=== PATIENT | male | born 1965 | race African-American/Black ===

== ENCOUNTER 2023-04-26 08:41 | Outpatient (CLI) | payer OTHER, MEDICARE, SELFPAY ==
--- NOTE | 2023-04-26 08:56 | ECG_ITS ---
Measurements Intervals [place] Rate: 85 P: 56 NE: 149 QRS: -31 QRSD: 104 T: 41 QT: 384 QTc: 458 Interpretive Statements SINUS RHYTHM BASELINE ARTIFACT MARKED LEFT AXIS DEVIATION [QRS AXIS < -30] MODERATE VOLTAGE CRITERIA FOR LVH, CONSIDER NORMAL VARIANT BORDERLINE ECG NO PREVIOUS ECG AVAILABLE FOR COMPARISON Electronically Signed On 04-26-2023 18:26:30 ELEVATOR OPERATOR by Dax Kaye M.D.
[2023-04-26 09:38] LABS: Anion Gap 3 mmol/L (8-16); Blood Urea Nitrogen 17 mg/dL (9-20); Calcium 9.7 mg/dL (8.4-10.2); Carbon Dioxide 32 mmol/L (22-30); Chloride 104 mmol/L (98-107); Estimated Glomerular Filt Rate > 60; Glucose 123 mg/dL (65-110); Potassium 3.8 mmol/L (3.4-5.0); Sodium 139 mmol/L (137-145)
[2023-04-26 09:40] LABS: Alanine Aminotransferase 25 U/L (6-50); Albumin Level 4.2 g/dL (3.5-5.1); Alkaline Phosphatase 139 U/L (38-126); Amylase 68 U/L (30-110); Aspartate Amino Transferase 34 U/L (17-59); Bilirubin,Total 0.8 mg/dL (0.2-1.3); Lipase 31 U/L (23-300)
== END 2023-04-26 08:42 | disposition home or self-care (01) ==
LOC: ANHSURGERY 08:46
PROVIDERS: Anesthesiology; PCP Internal Medicine; Visit Provider Surgery
DX: K82.8 Other specified diseases of gallbladder (principal); Z01.818 Encounter for other preprocedural examination; I10 Essential (primary) hypertension
CPT/HCPCS: 36415; 80048; 80076; 82150; 83690; 86850; 86900; 86901; 93005

== ENCOUNTER 2023-04-28 00:24 | Day surgery (SDC) | payer OTHER, MEDICARE, SELFPAY ==
[2023-04-19 12:06] VITALS: BMI 44.2
--- NOTE | 2023-04-19 12:13 | PC.NURSE ---
Report to the Outpatient Waiting Room, entrance under the green pavilion located off [facility], at time 8:00 on date 04/28/23. Planned Procedure Time: 10:00. Time changes happen often and if your time is changed the preop area will call you the afternoon before. - You and your visitor will be asked to self-screen and do not enter if you have any COVID symptoms. - A mask is optional within the hospital at this time. Patients may have clear liquids (water, carbonated beverages, clear teas, apple juice) until 3 hours prior to surgery (7:00) with a maximum of 20 ounces. - No food from midnight until time of surgery Take the following medications with a SIP of water the morning of surgery: INHALER, METHYLNALTREXONE, PAIN PILL IF NEEDED DO NOT STOP ANY OF YOUR OTHER PRESCRIPTION MEDICATIONS PRIOR TO SURGERY ?EXCEPT THE FOLLOWING Medications to discontinue per physician: VITAMINS/SUPPLEMENTS Date to take last dose: 04/24/[address] GONZALEZ Please no make-up, nail guyanese, hairspray, perfume, deodorant, or body powder the day of surgery. No jewelry (including any body piercings) or valuables the day of surgery, leave them at home. Please take a shower or bath the night before, or the morning of, surgery with an antibacterial soap. Wear comfortable, loose fitting clothing. - Jewelry must be removed prior to entering the operating room. Rings and piercings that are not removed may be cut off. - The hospital will not accept responsibility for valuables. - Please leave all valuables, including medications, at home the day of surgery. If you are going home after surgery, a licensed train driver must drive you home. - NO public transportation without another adult if you receive anesthesia. - We recommend that an adult stay with you for 24 hours following discharge. - We also recommend that you do not drive, make important decision, drink alcoholic beverages, or take any drugs that were not prescribed by your health care provider for at least 24 hours after your discharge time. Follow any additional instructions given to you from your surgeon. If you or anyone in your household have experienced Covid symptoms in the past week, please notify your surgeon or the nurse liaison at the phone number below for possible testing. Telephone instructions given to PT - STEFANIA MARSH and asked if any additional questions and then verbalized understanding. Patient advised to call surgeon office or pre surgery nurse liaison [phone] if any additional questions.
[2023-04-28] VITALS (9 sets, daily range): BP systolic 101–154; BP diastolic 55–84; PULSE 60–106; RESP 12–21; TEMP 36.1–36.6; O2SAT 100
[2023-04-28] MEDS: INDOCYANINE GREEN 25 MG VIAL WITH DILUENT 3.75 MG IV PUSH (08:45)
[2023-04-28] MEDS: KETOROLAC 15 MG/ML VIAL (*BKC) IV PUSH (08:45)
[2023-04-28] MEDS: ACETAMINOPHEN 500 MG TABLET 1000 MG PO (08:45)
[2023-04-28] MEDS: LACTATED RINGERS 1,000 ML 30 ML IV CONT ×2 (08:45→11:26)
[2023-04-28] MEDS: SCOPOLAMINE 1 MG PATCH 1 PATCH TRANSDERM (09:00)
--- NOTE | 2023-04-28 09:18 | WPDHPUPDATE1 ---
History and Physical Update Update Date/Time: 04/28/23 09:18 History and Physical has been reviewed, including an updated exam of the patient. There are NO changes in the patient's condition. Risks, benefits, and alternatives have been discussed and questions answered. Patient agrees to proceed with procedure.
--- NOTE | 2023-04-28 09:18 | PM.IMHP ---
H&P: HPI History of Present Illness Date/Time: 04/28/23 09:18 Chief Complaint: Biliary dyskinesia Narrative: This is a 57-year-old man who presents for robotic assisted laparoscopic cholecystectomy. He reports no changes since last seen in the office. Review of Systems Review of Systems: All systems reviewed & are unremarkable except as noted in HPI and below Constitutional: Constitutional: Denies chills, Denies fever(s), Denies headache(s) and Denies weight loss Eyes: Eyes: Denies change in vision ENT: Denies dizziness, Denies headache(s), Denies neck mass and Denies throat swelling Cardiovascular: Cardiovascular: Denies chest pain, Denies lightheadedness and Denies dyspnea Respiratory: Respiratory: Denies cough, Denies dyspnea and Denies wheezing Gastrointestinal: Gastrointestinal: Denies abdominal pain, Denies change in bowel habits, Denies nausea and Denies vomiting Genitourinary: Genitourinary: Denies hematuria and Denies dysuria Musculoskeletal: Musculoskeletal: Reports as per HPI Integumentary/Breasts: Skin/Breast: Reports as per HPI Neurologic: Denies dizziness and Denies headache(s) Allergic/Immunologic: Allergic/Immunologic: Denies throat swelling and Denies wheezing PMFSH Past Medical History Medical History Hx of blood clots Hyperlipidemia Hypertension Kidney stones Surgical History Surgical History (Updated 02/10/23 @ 11:47 by Angelina Johns MA) History of back surgery History of carpal tunnel surgery History of penile implant Family History Family History (Updated 02/10/23 @ 11:47 by Angelina Johns MA) Father Heart disease Mother Diabetes mellitus Other Cancer Social History Social History (Updated 02/10/23 @ 11:47 by Angelina Johns MA) Smoking status: Never smoker Alcohol intake: current Alcohol use details: SPECIAL OCCASIONS Substance use: never Substance use type: does not use Living arrangements: with family Additional occupation/education comments: disabled Spiritual care concerns: No Meds Home Medications and Allergies Home Medications Medication Instructions Recorded Confirmed Type amlodipine 10 mg tablet 10 mg PO HS 02/10/23 04/19/23 History atorvastatin 80 mg tablet 80 mg PO QHS 02/10/23 04/19/23 History cholecalciferol (vitamin D3) 1,250 1,250 mcg PO WEEKLY 02/10/23 04/19/23 History mcg (50,000 unit) capsule hydrocodone 5 mg-acetaminophen 325 1 tablet PO Q8H PRN Pain 02/10/23 04/19/23 History mg tablet ipratropium 0.5 mg-albuterol 3 mg 3 ml inhalation QID PRN Shortness 02/10/23 04/19/23 History (2.5 mg base)/3 mL nebulization Of Breath soln lidocaine 4 % topical cream 1 applic topical QID PRN Pain 02/10/23 04/19/23 History methylnaltrexone 150 mg tablet 450 mg PO DAILY 02/10/23 04/19/23 History (Relistor) mometasone-formoterol HFA 200 2 puff inhalation Q12H 02/10/23 04/19/23 History mcg-5 mcg/actuation aerosol inhaler (Dulera) pantoprazole 40 mg tablet,delayed 40 mg PO QAM 02/10/23 04/19/23 History release cyclobenzaprine 10 mg tablet 10 mg PO HS 04/19/23 04/19/23 History ibuprofen 400 mg tablet 400 mg PO TID PRN Pain 04/19/23 04/19/23 History lisinopril 20 1 tablet PO DAILY 04/19/23 04/19/23 History mg-hydrochlorothiazide 25 mg tablet Allergies Allergy/AdvReac Type Severity Reaction Status Date / Time No Known Allergies Allergy Verified 04/19/23 12:01 Exam Const: General: no acute distress and alert Orientation/consciousness: patient oriented x3 HENMT: Head: normocephalic and atraumatic Ears: hearing grossly normal bilaterally Face/Nose/Sinus: Normal nares present Mouth: Yes Normal oral and palatal mucosa present Eyes: Periorbital: periorbital findings normal Sclera: sclerae normal EOM: EOMs intact bilaterally Neck: Neck: normal visual inspection, no lymphadenopathy and trachea midline Chest: Chest palpation
--- NOTE | 2023-04-28 09:20 | WPDANESEPPF ---
Anes - Initial Pre Proc Eval Procedure: Operation Date: 04/28/23 10:00 Proposed Procedures p Laparoscopic Cholecystectomy, Davinci Assisted - John Dye DO Date/Time: 04/28/23 09:20 Surgeon: John Dye DO Pre Op Diagnosis: biliary dyskinesia Patient Data Age: 57 Gender: M Height: 1.75 m Weight: 136 kg Allergies Allergy/AdvReac Type Severity Reaction Status Date / Time No Known Allergies Allergy Verified 04/19/23 12:01 Home Medications Medication Instructions Recorded Confirmed Type amlodipine 10 mg tablet 10 mg PO HS 02/10/23 04/19/23 History atorvastatin 80 mg tablet 80 mg PO QHS 02/10/23 04/19/23 History cholecalciferol (vitamin D3) 1,250 1,250 mcg PO WEEKLY 02/10/23 04/19/23 History mcg (50,000 unit) capsule hydrocodone 5 mg-acetaminophen 325 1 tablet PO Q8H PRN Pain 02/10/23 04/19/23 History mg tablet ipratropium 0.5 mg-albuterol 3 mg 3 ml inhalation QID PRN Shortness 02/10/23 04/19/23 History (2.5 mg base)/3 mL nebulization Of Breath soln lidocaine 4 % topical cream 1 applic topical QID PRN Pain 02/10/23 04/19/23 History methylnaltrexone 150 mg tablet 450 mg PO DAILY 02/10/23 04/19/23 History (Relistor) mometasone-formoterol HFA 200 2 puff inhalation Q12H 02/10/23 04/19/23 History mcg-5 mcg/actuation aerosol inhaler (Dulera) pantoprazole 40 mg tablet,delayed 40 mg PO QAM 02/10/23 04/19/23 History release cyclobenzaprine 10 mg tablet 10 mg PO HS 04/19/23 04/19/23 History ibuprofen 400 mg tablet 400 mg PO TID PRN Pain 04/19/23 04/19/23 History lisinopril 20 1 tablet PO DAILY 04/19/23 04/19/23 History mg-hydrochlorothiazide 25 mg tablet Patient hx anesthesia problems: none Family hx anesthesia problems: none Results Review: All pre-operative results and documents have been reviewed as part of the pre-operative evaluation. [facility] Past Medical History Medical History Hx of blood clots Hyperlipidemia Hypertension Kidney stones Surgical History Surgical History History of back surgery History of carpal tunnel surgery History of penile implant Family History Family History Father Heart disease Mother Diabetes mellitus Other Cancer Social History Social History Smoking status: Never smoker Alcohol intake: current Alcohol use details: SPECIAL OCCASIONS Substance use: never Substance use type: does not use Living arrangements: with family Additional occupation/education comments: disabled Spiritual care concerns: No Anes - Eval Final PreProcedure Day of Procedure 04/28/23 09:20 Patient weight: morbidly obese Heart: regular rate and rhythm Lungs: clear to auscultation Airway: Mallampati scale class III Neurological: alert and oriented Last oral intake: >/= 8 hours ASA classification: III Emergent: no Anesthetic plan: proceed Anesthesia type and monitoring: general ETT and standard monitoring Results Review: All pre-operative results and documents have been reviewed as part of the pre-operative evaluation. Informed Consent: The patient's anesthetic plan and its attendant risks and benefits were discussed with the patient/family/POA. Questions were solicited and answers provided to the satisfaction of the patient/family/POA.
[2023-04-28] MEDS: ceFAZolin 3 GM/D5W 100 ML 100 ML IVPB (10:19)
[2023-04-28] MEDS: BUPIVACAINE/EPINEPHRINE 0.5% 30 ML VIAL INFILTRATE (11:05)
--- NOTE | 2023-04-28 11:15 | W.PM.PROC2 ---
Procedure Note - Detailed Date of Procedure 04/28/23 Pre-op Diagnosis biliary dyskinesia Post-op Diagnosis Same Procedure Performed 1. Laparoscopic cholecystectomy with cholangiography, da Zakia assisted 2. Interpretation of cholangiography Surgeon John Dye, DO Anesthesia General and Local (0.5% bupivacaine) Indications This is a 57-year-old man who presented with right upper quadrant pain that had been off and on for the past several years. The pains have been worse over the past 6 or 8 months. Imaging showed evidence of a normal gallbladder but the gallbladder ejection fraction was decreased. Discussions were made with the patient about treatment options and decision was made to proceed with laparoscopic cholecystectomy, Da Zakia assisted. Findings Laparoscopic cholecystectomy with cholangiography was performed. The patient received indocyanine green IV in the preop. Near infrared fluorescence imaging was used to identify the biliary anatomy. I was able to trace the gallbladder to the cystic duct where it tapered to small size. This appeared to be well away from the common bile duct. No other abnormalities were noted. The gallbladder was removed and sent to the lab for pathology. Description of Procedure Procedure as well as risks, benefits, and alternatives were discussed with the patient. Written consent was obtained and placed in chart prior to procedure. 1.5 mL of indocyanine green was given intravenously in preop. Patient was brought back to surgical suite. She was placed supine on operating table. Time-out was done to confirm patient and procedure. He was then intubated by the anesthesia department. His abdomen was then prepped and draped in sterile fashion using chlorhexidine prep. 0.5% bupivacaine was infiltrated locally at the site of each port placement. An 8 mm incision was made just superior to the umbilicus and a 5 mm Optiview trocar was then advanced through the abdominal layers under direct visualization. Once inside the abdominal cavity, carbon dioxide insufflation was used to create a pneumoperitoneum. The camera was inserted and the abdomen was inspected. No mediated abnormalities were noted. The patient was placed in 10? reverse Trendelenburg position and rotated 6? to the left. Two 8 mm incisions were made in the right lateral abdomen and 2 8 mm trocars were inserted under direct visualization. A 8 mm incision was made in the left lateral abdomen and a 8 mm trocar was inserted under direct visualization. The 5 mm Optiview trocar was then removed and another 8 mm trocar was inserted in its place. The robotic arms were then brought up to the patient's bedside and secured to each port. The camera and instruments were inserted. I then moved over to the robotic consult to take control of the camera and instruments. The gallbladder was grasped at the fundus and retracted cephalad. The infundibulum of the gallbladder was then grasped and retracted laterally. Hook electrocautery was then used to carefully dissect around the neck of the gallbladder. The cystic duct was identified and a window was created around it using hook electrocautery. The cystic artery was also identified and a window was created behind it using hook electrocautery. Critical view of safety was identified visualizing the cystic duct running directly into the neck of the gallbladder and the cystic artery running directly into the wall the gallbladder. The camera view was switched to firefly mode and the indocyanine green within the gallbladder and cystic duct was clearly visualized. No other structures were noted running into this region and there did not appear to be any obstruction of the cystic duct impeding flow of bile into the gallbladder. The camera mode was switched back to regular mode. Hemo lock clips were placed on both the cystic duct and cystic artery. Two clips were placed proximally and 1 distally. Hook electrocautery was then used
[2023-04-28] MEDS: fentaNYL CITRATE INJ (*CRX) 100 MCG/2 ML VIAL 25 MCG IV PUSH ×4 (11:40→12:03)
[2023-04-28] MEDS: ONDANSETRON INJ 4 MG/2 ML VIAL IV PUSH (11:54)
[2023-04-28] MEDS: diphenhydrAMINE HCl INJ 50 MG/ML VIAL 25 MG IV PUSH (12:09)
[2023-04-28] MEDS: MAG HYDROX/AL HYDROX/SIMETH 30 ML UDC PO (12:45)
[2023-04-28] MEDS: PANTOPRAZOLE 40 MG TABLET PO (12:45)
== END 2023-04-28 13:40 | disposition home or self-care (01) ==
PROVIDERS: PCP Internal Medicine; Visit Provider Surgery
PROC: 0FT44ZZ Resection of Gallbladder, Percutaneous Endoscopic Approach (ICD-10-PCS; CPT 47562; principal; 2023-04-28 10:00)
DX: K82.8 Other specified diseases of gallbladder (principal); Z79.51 Long term (current) use of inhaled steroids; I10 Essential (primary) hypertension; E78.5 Hyperlipidemia, unspecified; E66.01 Morbid (severe) obesity due to excess calories; Z68.41 Body mass index [BMI] 40.0-44.9, adult
CPT/HCPCS: 47563; 74300; S2900; 88304; A9270; J0690; J1100; J1200; J1885; J2250; J2405; J2704; J3010; J7030; J7120